=== PATIENT | male | born 1995 | race Caucasian/White ===

== ENCOUNTER 2021-07-07 12:54 | Emergency (ER) | payer SELFPAY ==
[~2021-07-07] VITALS: Ht 170.2 cm; Wt 100.0 kg
[2021-07-07 15:40] LABS: BASOPHILS % 0.3 % (0.0-2.0); EOSINOPHILS % 0.1 % (0.0-5.0); HEMOGLOBIN. 15.4 g/dL (14.0-18.0); LYMPHOCYTES % 16.4 % (20.0-50.0); MEAN CORPUSCULAR HEMOGLOBIN 31.5 pg (28.0-32.0); MEAN CORPUSCULAR VOLUME 91.6 fL (80.0-94.0); MEAN PLATELET VOLUME 7.6 fl (7.4-10.4); MONOCYTES % 8.3 % (2.0-8.0); NEUTROPHILS % 74.9 % (40.0-76.0); PLATELET 288 x1000/uL (130-400); RED BLOOD CELL COUNT 4.91 mill/uL (4.7-6.1)
[2021-07-07 15:44] LABS: CHLORIDE 105 mEq/L (98-107)
[2021-07-07 17:29] VITALS: BP 141/89
== END 2021-07-07 17:33 | disposition home or self-care (01) ==
LOC: ER 13:00
DX: R40.20 Unspecified coma (principal); F19.10 Other psychoactive substance abuse, uncomplicated
CPT/HCPCS: 36415; 80048; 84484; 85025; 99283